=== PATIENT | female | born 1970 | race Caucasian/White ===

== ENCOUNTER 2017-06-20 15:55 | Emergency (ER) | payer SELFPAY ==
[2017-06-20 16:13] VITALS: TEMP 99.4
[2017-06-20] MEDS ORDERED: ACETAMINOPHEN-CAFF-BUTALBITAL 1 EA TAB PO ONE (16:29)
[2017-06-20] MEDS ORDERED: KETOROLAC TROMETHAMINE INJ 30 MG/ML VIAL IM ONE (16:29)
--- NOTE | 2017-06-20 16:32 | ED.PDOC ---
History of Present Illness - General Chief Complaint: Abdominal Pain Stated Complaint: L groin pain Time Seen by Provider: 06/20/17 16:19 Source: patient Exam Limitations: no limitations - History of Present Illness Initial Comments: the patient is a 46-year-old female presenting to the emergency room secondary to left lower quadrant abdominal pain. this has been a long-standing intermittent pain over the last 3-4 years. no fevers. No hernia. It is a little worse with movement. the patient has been told by her previous wood milling machine operator that it is painful ovarian cysts. The last time she saw her wood milling machine operator was several years ago. She has been having fairly regular periods and the pain does come reproducibly with each period. She did miss her cycle last month but is on her period currently. She does smoke. She has been on hormone therapy before. She is not having any diarrhea or constipation. No unusual vaginal discharge. The pain is a little worse than it normally is today which is why she presented. She normally just takes ibuprofen for it. There is some questionable history ofcervical dysplasia in the past. character, nature, timing and location are all consistent with her previous episodes of dysmenorrhea. Timing/Duration: unsure Severity: moderate Improving Factors: nothing Worsening Factors: movement Associated Symptoms: denies symptoms Allergies/Adverse Reactions: Allergies NO KNOWN ALLERGY Allergy (Verified 06/20/17 16:05) Home Medications: Ambulatory Orders Xbugrtohffzxm-Qfzi-Aufnkuwvcp [Fioricet] 1 ea PO Q8H PRN #21 tab 06/20/17 Ibuprofen 600 mg PO Q8HR PRN #30 tab 06/20/17 Review of Systems - Review of Systems Constitutional: States: malaise EENTM: States: no symptoms reported Respiratory: States: no symptoms reported Cardiology: States: no symptoms reported Gastrointestinal/Abdominal: States: abdominal pain Genitourinary: States: pain Musculoskeletal: States: no symptoms reported Skin: States: no symptoms reported Neurological: States: anxiety Endocrine: States: no symptoms reported All other Systems: No Change from Baseline Past Medical History (General) - Patient Medical History Hx Stroke: No Hx Congestive Heart Failure: No Hx Diabetes: No Hx MRSA: No Surgical History: other - Vaccination History Hx Influenza Vaccination: No Hx Pneumococcal Vaccination: No - Social History Hx Tobacco Use: Yes - Female History Patient is a Female of Child Bearing Age (10 -59 yrs old): Yes Patient : No Family Medical History - Family History Mother Living Status: Hx Family Hypertension: Yes Hx Family Diabetes: Yes Physical Exam - Physical Exam General Appearance: Alert, Anxious, No apparent distress Eye Exam: bilateral normal Ears, Nose, Throat: hearing grossly normal, normal ENT inspection, normal pharynx Neck: non-tender, full range of motion, supple Respiratory: lungs clear, normal breath sounds, no respiratory distress, no accessory muscle use Cardiovascular/Chest: normal peripheral pulses, regular rate, rhythm, no edema Peripheral Pulses: radial,right: 2+, radial,left: 2+, dorsalis pedis,right: 2+, dorsalis pedis,left: 2+ Gastrointestinal/Abdominal: soft, other - obese. Pain does localize to the area that would be over the left ovary.no obvious palpable hernia. Rectal Exam: deferred Back Exam: normal inspection, no CVA tenderness, no vertebral tenderness Extremity: normal range of motion, non-tender, normal inspection, no pedal edema , normal capillary refill Neurologic: moisture meter operator II-XII nml as tested, alert, normal mood/affect, oriented x 3 Skin Exam: normal color Comments: Vital Signs - 24 hr 06/20/17 16:06 Temperature 99.4 F Pulse Rate [ 114 H Left Radial] Respiratory 20 Rate Blood Pressure 149/87 [Left Arm] O2 Sat by Pulse 94 L Oximetry Progress - Progress Progress: 06/20/17 16:34 the patient is a 46-year-old female presenting to the emergency room secondary to an exacerbation of her long-standing and seemingly well-defined dysmenorrhea. The patient did receive a dose of Toradol and Fioricet here today. The patient is going to be written for Fioricet for as needed use during her episodes of dysmenorrhea. She does need to get set up with Dr. Powell here in [facility], for her wood milling machine operator. It has been several years since she has seen her wood milling machine operator and several studies are appropriate for her with this problem and in her age group. She has been encouraged to stop smoking so that she can use hormone therapy if that would be deemed beneficial at that time. ER warnings were given. She does need to keep well-hydrated. Departure - Departure Clinical Impression: Dysmenorrhea Disposition: Discharge to Home or Self Care Condition: Fair Departure Forms: ED Discharge - Pt. Copy, Patient Portal Self Enrollment Diet: regular diet Activity: increase activity as tolerated Prescriptions: Ibuprofen 600 mg PO Q8HR PRN #30 tab PRN Reason: Pain -- Mild To Moderate Ijavzhqefysom-Quqg-Byyjobkdgu [Fioricet] 1 ea PO Q8H PRN #21 tab PRN Reason: Pain Home Medications: Ambulatory Orders Tcqekaljfvdnf-Szce-Vopvnyesdz [Fioricet] 1 ea PO Q8H PRN #21 tab 06/20/17 Ibuprofen 600 mg PO Q8HR PRN #30 tab 06/20/17 Additional Instructions: the patient is a 46-year-old female presenting to the emergency room secondary to an exacerbation of her long-standing and seemingly well-defined dysmenorrhea. The patient did receive a dose of Toradol and Fioricet here today. The patient is going to be written for Fioricet for as needed use during her episodes of dysmenorrhea. She does need to get set up with Dr. Powell here in [facility], for her wood milling machine operator. It has been several years since she has seen her wood milling machine operator and several studies are appropriate for her with this problem and in her age group. She has been encouraged to stop smoking so that she can use hormone therapy if that would be deemed beneficial at that time. ER warnings were given. She does need to keep well-hydrated.
[2017-06-20 17:16] VITALS: BP 140/90; O2SAT 96
== END 2017-06-20 17:00 | disposition home or self-care (01) ==
LOC: ER 15:55
DX: N94.6 Dysmenorrhea, unspecified (principal); Z87.891 Personal history of nicotine dependence